=== PATIENT | male | born 1935 | race Caucasian/White ===

== ENCOUNTER → 2017-11-03 | Outpatient (CLI) | payer MEDICARE ==
[~2017-11-03] VITALS: Ht 188 cm; Wt 133.4 kg
[~2017-11-03] MED LIST: ALLO300T2 PO; ASPI-1197 PO; ATOR20TA65 PO; CHOL50004 PO; DIGO250T84 PO; DILT60TA3 PO; EXEN2PEN SQ; FINA5TAB41 PO; LANS30CA55 PO; METF-444 PO; METO-391 PO; NATE120T9 PO; REGADENOSON 0.4 MG/5 ML PF SYG IVP SCH; TAMS0.4C32 PO; TORS10TA18 PO; TRAM200T36 PO; VITAMIN B12 PO; WARF5TAB8 PO
== END | disposition home or self-care (01) ==
LOC: SHCH 07:45
PROVIDERS: ATTEND Internal Medicine Cardiovascular Disease
DX: I25.9 Chronic ischemic heart disease, unspecified (principal); I25.10 Atherosclerotic heart disease of native coronary artery without angina pectoris
CPT/HCPCS: 78452; 93017; 96374; A9500 ×2; J2785

== ENCOUNTER → 2017-11-04 | Outpatient (CLI) | payer MEDICARE ==
[~2017-11-04] MED LIST changes: -REGADENOSON 0.4 MG/5 ML PF SYG IVP SCH
== END | disposition home or self-care (01) ==
LOC: EDUNIT# 08:30 → SHCH 09:04
PROVIDERS: ATTEND Internal Medicine Cardiovascular Disease
DX: I35.0 Nonrheumatic aortic (valve) stenosis (principal); I70.0 Atherosclerosis of aorta
CPT/HCPCS: 93306

== ENCOUNTER 2017-11-11 07:32 | Day surgery (SDC) | payer MEDICARE ==
[2017-11-07 14:03] VITALS: BP 142/71
[2017-11-07 14:20] LABS: BASOPHILS % (AUTO) 0.6 % (0.0-5.0); EOSINOPHILS % (AUTO) 1.4 % (0.0-8.0); HEMATOCRIT 40.8 % (42-54); LYMPHOCYTES % (AUTO) 22.3 % (21.0-51.0); MEAN CORPUSCULAR HEMOGLOBIN 31.6 pg (27.0-33.0); MEAN CORPUSCULAR HGB CONC 33.5 g/dL (32.0-36.0); MEAN CORPUSCULAR VOLUME 94.3 fL (79-99); MONOCYTES % (AUTO) 4.8 % (3.0-13.0); NEUTROPHILS % (AUTO) 70.9 % (40.0-77.0); PLATELET COUNT (AUTO) 152 K/uL (130-400); RED BLOOD CELL COUNT(AUTO) 4.33 MIL/uL (4.50-6.20); RED CELL DISTRIBUTION WIDTH 13.9 % (11.0-15.5); WHITE BLOOD COUNT (AUTO) 8.9 K/uL (4.8-10.8)
[2017-11-07 14:30] LABS: CREATININE 1.2 mg/dL (0.5-1.5); POTASSIUM 4.5 mmol/L (3.5-5.1)
[2017-11-07 14:32] LABS: INR 2.2 (0.85-1.15); PARTIAL THROMBOPLASTIN TIME 34.5 SEC (26.3-35.5); PROTHROMBIN TIME 22.7 SEC (9.6-11.6)
[~2017-11-11] VITALS: Ht 188 cm; Wt 136.1 kg
[2017-11-11] VITALS (10 sets, daily range): BP systolic 103–167; BP diastolic 59–77
[2017-11-11 08:29] LABS: INR 1.13 (0.85-1.15); PROTHROMBIN TIME 11.8 SEC (9.6-11.6)
[2017-11-11] MEDS ORDERED: SODIUM CHLORIDE 0.9% 1000ML 1,000 ML IV ONE (08:30)
[2017-11-11] MEDS ORDERED: LIDOCAINE HCL 1% MDV 50ML VIAL ONE (14:17)
[2017-11-11] MEDS ORDERED: CEFAZOLIN SODIUM 1 GM VIAL ONE ×2 (14:21→15:05)
[2017-11-11] MEDS ORDERED: BUPIVACAINE/PF 0.25% 50ML VIAL IJ ONE (14:22)
[2017-11-11] MEDS ORDERED: MEPERIDINE-PF 25 MG/ML SYG ONE ×2 (14:54→15:12)
[2017-11-11] MEDS ORDERED: MIDAZOLAM HCL 1 MG/ML 2ML VIAL ONE ×2 (14:54→15:12)
[2017-11-11] MEDS ORDERED: THROMBIN-JMI 5000 UNIT/VIAL TP ONE (15:30)
[2017-11-11] MEDS ORDERED: LABETALOL HCL 5 MG/ML 20ML VIAL IV ONE (15:38)
[2017-11-11] MEDS ORDERED: OCTYL 2-CYANOACRYLATE 1 EACH TP ONE (15:40)
[2017-11-11] MEDS ORDERED: ACETAMINOPHEN-CODEINE 300/30MG TAB PO PRN ×2 (16:00)
[2017-11-11] MEDS ORDERED: ACETAMINOPHEN 325 MG TAB PO PRN ×2 (16:00)
[2017-11-17] MEDS ORDERED: SODIUM CHLORIDE 0.9% 1000ML 1,000 ML IV SCH (08:00)
[2017-11-17] MEDS ORDERED: CEFAZOLIN 3GM /D5W 100ML 100 ML IV PRN (08:00)
== END 2017-11-11 19:55 | disposition home or self-care (01) ==
LOC: DAH 07:32
PROVIDERS: ATTEND Internal Medicine Cardiovascular Disease
DX: I48.2 Chronic atrial fibrillation (principal); I25.10 Atherosclerotic heart disease of native coronary artery without angina pectoris; I10 Essential (primary) hypertension; E78.5 Hyperlipidemia, unspecified; K21.9 Gastro-esophageal reflux disease without esophagitis; M19.90 Unspecified osteoarthritis, unspecified site; E66.9 Obesity, unspecified; Z68.38 Body mass index [BMI] 38.0-38.9, adult; Z95.1 Presence of aortocoronary bypass graft; Z79.01 Long term (current) use of anticoagulants; Z79.84 Long term (current) use of oral hypoglycemic drugs; Z79.82 Long term (current) use of aspirin; Z79.899 Other long term (current) drug therapy; Z87.891 Personal history of nicotine dependence; F15.90 Other stimulant use, unspecified, uncomplicated; Z82.49 Family history of ischemic heart disease and other diseases of the circulatory system; Z84.89 Family history of other specified conditions
CPT/HCPCS: 33227; 36415 ×2; 80048; 82948 ×3; 85025; 85610 ×2; 85730; 93005; 99156; 99157 ×2; A4606; C1786; J0690 ×2; J2175 ×2; J2250 ×2; J3490 ×4; J7030; 33228

== ENCOUNTER → 2020-02-01 | Outpatient (CLI) | payer MEDICARE ==
[~2020-02-01] MED LIST changes: +DIGO250T73 PO; -DIGO250T84 PO
== END | disposition home or self-care (01) ==
LOC: RAH 13:07
PROVIDERS: ATTEND Family Medicine
DX: M48.061 Spinal stenosis, lumbar region without neurogenic claudication (principal); R29.898 Other symptoms and signs involving the musculoskeletal system; M25.78 Osteophyte, vertebrae
CPT/HCPCS: 72131

== ENCOUNTER 2020-02-23 05:55 | Day surgery (SDC) | payer MEDICARE ==
[2020-02-22 09:18] VITALS: BP 126/70
[~2020-02-23] VITALS: Ht 188 cm; Wt 123.3 kg
[~2020-02-23 05:55] MED LIST changes: -EXEN2PEN SQ
[2020-02-23 06:14] VITALS: BP 115/62
[2020-02-23] MEDS ORDERED: ISOVUE-M 200 20 ML VIAL IT ONE (06:44)
[2020-02-23] MEDS ORDERED: 0.9%NACL 1000ML 1,000 ML IV ONE (07:04)
== END 2020-02-23 07:40 | disposition home or self-care (01) ==
LOC: DAH 05:55
PROVIDERS: ATTEND Neurological Surgery
DX: M48.061 Spinal stenosis, lumbar region without neurogenic claudication (principal); Z53.8 Procedure and treatment not carried out for other reasons
CPT/HCPCS: 71045; 82948; 93005; A4215; A4221; A4222; A4223; A4663; J7030; Q9966

== ENCOUNTER → 2020-03-01 | Outpatient (CLI) | payer MEDICARE ==
[~2020-03-01] MED LIST changes: +IOHEXOL-350 50ML VIAL IV ONE
== END | disposition home or self-care (01) ==
LOC: RAH 08:08
PROVIDERS: ATTEND Internal Medicine Cardiovascular Disease
DX: I71.4 Abdominal aortic aneurysm, without rupture (principal); I25.10 Atherosclerotic heart disease of native coronary artery without angina pectoris; J98.11 Atelectasis; I70.298 Other atherosclerosis of native arteries of extremities, other extremity; M51.35 Other intervertebral disc degeneration, thoracolumbar region
CPT/HCPCS: 75635; Q9967 ×3

== ENCOUNTER → 2020-03-09 | Outpatient (CLI) | payer MEDICARE ==
[~2020-03-09] MED LIST changes: -IOHEXOL-350 50ML VIAL IV ONE
== END | disposition home or self-care (01) ==
LOC: SHCH 08:32
PROVIDERS: ATTEND Internal Medicine Cardiovascular Disease
DX: I49.5 Sick sinus syndrome (principal)
CPT/HCPCS: 93306; 93356

== ENCOUNTER → 2020-03-14 | Outpatient (CLI) | payer MEDICARE | END | disposition home or self-care (01) | LOC: SHCH 14:19 | PROVIDERS: ATTEND Internal Medicine Cardiovascular Disease | DX: I65.23 Occlusion and stenosis of bilateral carotid arteries (principal); I25.10 Atherosclerotic heart disease of native coronary artery without angina pectoris | CPT/HCPCS: 93880 ==

== ENCOUNTER → 2022-04-12 | Outpatient (CLI) | payer MEDICARE ==
[~2022-04-12] MED LIST changes: +TRAM200T30 PO; -TRAM200T36 PO
[2022-04-12 10:29] LABS: INR 1.21 (0.85-1.15)
[2022-04-12 10:30] LABS: PARTIAL THROMBOPLASTIN TIME 27.6 SEC (26.3-35.5)
[2022-04-12 17:21] LABS: BF EOSINOPHIL 2 %; BF LYMPHOCYTE 52 %; BF MESOTHELIAL 4 %; BF OTHER CELLS 1
[2022-04-12 17:49] LABS: BODY FLUID RBC 716 /cu. mm.; BODY FLUID WBC 1222 /cu. mm.
[2022-04-12 18:01] LABS: APPEARANCE BODY FLUID CLEAR (CLEAR); COLOR,BODY FLUID YELLOW (LT YELLOW); SPECIMENTYPE,BODY FLUID PLEURAL
[2022-04-12 18:02] LABS: TOTAL VOLUME,BODY FLUID 2000 mL
== END | disposition home or self-care (01) ==
LOC: RAH 09:08
PROVIDERS: ATTEND Family Medicine
DX: J90 Pleural effusion, not elsewhere classified (principal); Z79.01 Long term (current) use of anticoagulants
CPT/HCPCS: 32555; 89051; 85610; 85730; 87071; 87205; 36415; 71045; C1729

== ENCOUNTER → 2022-05-08 | Outpatient (CLI) | payer MEDICARE | END | disposition home or self-care (01) | LOC: RAH 12:55 | PROVIDERS: ATTEND Student in an Organized Health Care Education/Training Program | DX: I08.0 Rheumatic disorders of both mitral and aortic valves (principal); R01.1 Cardiac murmur, unspecified | CPT/HCPCS: 93306 ==

== ENCOUNTER → 2022-05-20 | Outpatient (CLI) | payer MEDICARE ==
[~2022-05-20] MED LIST changes: +LIDOCAINE HCL 1% 20 ML VIAL ONE
[2022-05-20 13:57] LABS: CHOLESTEROL < 50 mg/dL (<200); HDL CHOLESTEROL 24 mg/dL (29-71); LDL DIRECT 14 mg/dL (0-99); TRIGLYCERIDES < 15 mg/dL (30-200)
[2022-05-20 14:50] LABS: SPECIMENTYPE,BODY FLUID PLEURAL
[2022-05-20 14:51] LABS: APPEARANCE BODY FLUID CLEAR (CLEAR); COLOR,BODY FLUID YELLOW (LT YELLOW); TOTAL VOLUME,BODY FLUID 2000 mL
[2022-05-20 15:01] LABS: BODY FLUID RBC 222 /cu. mm.; BODY FLUID WBC 790 /cu. mm.
[2022-05-20 16:29] LABS: BF LYMPHOCYTE 7 %; BF MESOTHELIAL 1 %; BF MONOCYTE 2 %; BF OTHER CELLS 11
== END | disposition home or self-care (01) ==
LOC: RAH 09:15
PROVIDERS: ATTEND Family Medicine
DX: J90 Pleural effusion, not elsewhere classified (principal); Z79.899 Other long term (current) drug therapy
CPT/HCPCS: 32555; 71045; 80061; 82945; 82150; 84157; 83615; 89051; 84315; 36415; C1729

== ENCOUNTER → 2022-06-24 | Outpatient (CLI) | payer MEDICARE ==
[~2022-06-24] MED LIST changes: -LIDOCAINE HCL 1% 20 ML VIAL ONE
[2022-06-24 16:41] LABS: ALBUMIN 3.2 g/dL (3.5-5.0); CREATININE 1.3 mg/dL (0.5-1.5); POTASSIUM 3.6 mmol/L (3.5-5.1); TOTAL PROTEIN, SERUM 6.6 g/dL (6.0-8.3)
== END | disposition home or self-care (01) ==
LOC: LAB 13:51
PROVIDERS: ATTEND Student in an Organized Health Care Education/Training Program
DX: I73.9 Peripheral vascular disease, unspecified (principal)
CPT/HCPCS: 36415; 80053

== ENCOUNTER → 2022-07-05 | Outpatient (CLI) | payer MEDICARE ==
[~2022-07-05] MED LIST changes: +IOHEXOL 350 MG/ML 100ML INFUS..BTL IV ONE; +IOHEXOL-350 50ML VIAL IV ONE
[2022-07-05 11:13] LABS: CREATININE 1.5 mg/dL (0.5-1.5)
[2022-07-05 11:26] LABS: INR 1.62 (0.85-1.15); PROTHROMBIN TIME 17.2 SEC (9.6-11.6)
[2022-07-05 11:28] LABS: PARTIAL THROMBOPLASTIN TIME 29.9 SEC (26.3-35.5)
== END | disposition home or self-care (01) ==
LOC: RAH 10:06
PROVIDERS: ATTEND Student in an Organized Health Care Education/Training Program
DX: J90 Pleural effusion, not elsewhere classified (principal); I73.9 Peripheral vascular disease, unspecified; R06.02 Shortness of breath; I71.40 Abdominal aortic aneurysm, without rupture, unspecified; K80.20 Calculus of gallbladder without cholecystitis without obstruction; R16.0 Hepatomegaly, not elsewhere classified; Z79.01 Long term (current) use of anticoagulants
CPT/HCPCS: 32555; 71045; 84520; 82565; 85610; 85730; 36415; 75635; Q9967; C1729

== ENCOUNTER → 2022-07-30 | Outpatient (CLI) | payer MEDICARE ==
[~2022-07-30] MED LIST changes: -IOHEXOL 350 MG/ML 100ML INFUS..BTL IV ONE; -IOHEXOL-350 50ML VIAL IV ONE; +LIDOCAINE HCL 1% 20 ML VIAL ONE
== END | disposition home or self-care (01) ==
LOC: RAH 07:27
PROVIDERS: ATTEND Family Medicine
DX: J90 Pleural effusion, not elsewhere classified (principal); E11.22 Type 2 diabetes mellitus with diabetic chronic kidney disease; I13.0 Hypertensive heart and chronic kidney disease with heart failure and stage 1 through stage 4 chronic kidney disease, or unspecified chronic kidney disease; N18.30 Chronic kidney disease, stage 3 unspecified; I50.32 Chronic diastolic (congestive) heart failure; I25.2 Old myocardial infarction; I87.2 Venous insufficiency (chronic) (peripheral); E66.9 Obesity, unspecified; E03.9 Hypothyroidism, unspecified; E78.5 Hyperlipidemia, unspecified; M10.9 Gout, unspecified; K21.9 Gastro-esophageal reflux disease without esophagitis; I48.20 Chronic atrial fibrillation, unspecified; Z95.5 Presence of coronary angioplasty implant and graft; Z90.89 Acquired absence of other organs; Z98.890 Other specified postprocedural states; Z82.49 Family history of ischemic heart disease and other diseases of the circulatory system; Z80.1 Family history of malignant neoplasm of trachea, bronchus and lung; Z79.82 Long term (current) use of aspirin; Z79.01 Long term (current) use of anticoagulants; Z79.899 Other long term (current) drug therapy; Z68.34 Body mass index [BMI] 34.0-34.9, adult
CPT/HCPCS: 32555; 71045; C1729

== ENCOUNTER → 2022-09-04 | Outpatient (CLI) | payer MEDICARE ==
[~2022-09-04] MED LIST changes: -LIDOCAINE HCL 1% 20 ML VIAL ONE
[2022-09-04 09:12] LABS: INR 2.12 (0.85-1.15); PROTHROMBIN TIME 23.4 SEC (9.6-11.6)
[2022-09-04 14:13] LABS: APPEARANCE BODY FLUID CLEAR (CLEAR); COLOR,BODY FLUID YELLOW (LT YELLOW); SPECIMENTYPE,BODY FLUID PLEURAL; TOTAL VOLUME,BODY FLUID 2000 mL
[2022-09-04 15:23] LABS: BF LYMPHOCYTE 84 %; BF MONOCYTE 3 %
[2022-09-04 15:29] LABS: BODY FLUID RBC 563 /cu. mm.; BODY FLUID WBC 1317 /cu. mm.
== END | disposition home or self-care (01) ==
LOC: RAH 07:52
PROVIDERS: ATTEND Family Medicine
DX: J90 Pleural effusion, not elsewhere classified (principal); Z79.01 Long term (current) use of anticoagulants; Z79.899 Other long term (current) drug therapy
CPT/HCPCS: 32555; 89051; 85610; 85730; 87071; 87205; 36415; 71045; C1729

== ENCOUNTER → 2023-01-27 | Outpatient (CLI) | payer MEDICARE ==
[2023-01-27 10:41] LABS: PARTIAL THROMBOPLASTIN TIME 44.5 SEC (26.3-35.5)
[2023-01-27 10:47] LABS: INR 4.01 (0.85-1.15); PROTHROMBIN TIME 42.5 SEC (9.6-11.6)
== END | disposition home or self-care (01) ==
LOC: RAH 09:11
PROVIDERS: ATTEND Family Medicine
DX: J90 Pleural effusion, not elsewhere classified (principal); Z79.01 Long term (current) use of anticoagulants; Z79.899 Other long term (current) drug therapy
CPT/HCPCS: 32555; 85610; 85730; 36415; 71045; C1729

== ENCOUNTER → 2023-04-30 | Outpatient (CLI) | payer MEDICARE ==
[2023-04-30 09:37] LABS: INR 1.53 (0.85-1.15); PROTHROMBIN TIME 17.3 SEC (9.6-11.6)
[2023-04-30 09:38] LABS: PARTIAL THROMBOPLASTIN TIME 30.7 SEC (26.3-35.5)
[2023-04-30 13:32] LABS: GLUCOSE PLEURAL FLUID 171; PROTEIN PLEURAL FLUID 3.4 mg/dL
[2023-04-30 15:15] LABS: BODY FLUID RBC 1550 /cu. mm.; BODY FLUID WBC 2245 /cu. mm.
[2023-04-30 17:52] LABS: APPEARANCE BODY FLUID SLIGHTLY CLOUDY (CLEAR); COLOR,BODY FLUID YELLOW (LT YELLOW); SPECIMENTYPE,BODY FLUID PLEURAL; TOTAL VOLUME,BODY FLUID 2000 mL
[2023-04-30 19:07] LABS: BF LYMPHOCYTE 85 %; BF MACROPHAGE 4; BF MONOCYTE 3 %; BF OTHER CELLS 4; BF TOTAL CELLS COUNTED 100
== END | disposition home or self-care (01) ==
LOC: RAH 08:46
PROVIDERS: ATTEND Family Medicine
DX: J90 Pleural effusion, not elsewhere classified (principal); J93.9 Pneumothorax, unspecified; E11.22 Type 2 diabetes mellitus with diabetic chronic kidney disease; I13.0 Hypertensive heart and chronic kidney disease with heart failure and stage 1 through stage 4 chronic kidney disease, or unspecified chronic kidney disease; N18.30 Chronic kidney disease, stage 3 unspecified; I50.32 Chronic diastolic (congestive) heart failure; I25.2 Old myocardial infarction; I87.2 Venous insufficiency (chronic) (peripheral); E66.9 Obesity, unspecified; E03.9 Hypothyroidism, unspecified; E78.5 Hyperlipidemia, unspecified; M10.9 Gout, unspecified; K21.9 Gastro-esophageal reflux disease without esophagitis; I48.20 Chronic atrial fibrillation, unspecified; Z95.5 Presence of coronary angioplasty implant and graft; Z90.89 Acquired absence of other organs; Z79.899 Other long term (current) drug therapy; Z82.49 Family history of ischemic heart disease and other diseases of the circulatory system; Z80.1 Family history of malignant neoplasm of trachea, bronchus and lung; Z79.82 Long term (current) use of aspirin; Z68.34 Body mass index [BMI] 34.0-34.9, adult; Z79.01 Long term (current) use of anticoagulants; Z98.890 Other specified postprocedural states
CPT/HCPCS: 32555; 71045 ×2; 82945; 84157; 83986; 83615; 89051; 85610; 85730; 87071; 87205; 36415; 88305; 88112; C1729

== ENCOUNTER → 2023-06-02 | Outpatient (CLI) | payer MEDICARE ==
[2023-06-02 08:44] LABS: INR 1.94 (0.85-1.15); PROTHROMBIN TIME 21.8 SEC (9.6-11.6)
[2023-06-02 08:45] LABS: PARTIAL THROMBOPLASTIN TIME 35.3 SEC (26.3-35.5)
== END | disposition home or self-care (01) ==
LOC: RAH 07:45
PROVIDERS: ATTEND Family Medicine
DX: J90 Pleural effusion, not elsewhere classified (principal); I48.20 Chronic atrial fibrillation, unspecified; E11.22 Type 2 diabetes mellitus with diabetic chronic kidney disease; I13.0 Hypertensive heart and chronic kidney disease with heart failure and stage 1 through stage 4 chronic kidney disease, or unspecified chronic kidney disease; N18.31 Chronic kidney disease, stage 3a; I50.32 Chronic diastolic (congestive) heart failure; K21.9 Gastro-esophageal reflux disease without esophagitis; M10.9 Gout, unspecified; D68.59 Other primary thrombophilia; I25.2 Old myocardial infarction; I87.2 Venous insufficiency (chronic) (peripheral); E66.9 Obesity, unspecified; E03.9 Hypothyroidism, unspecified; E78.5 Hyperlipidemia, unspecified; Z98.890 Other specified postprocedural states; Z90.89 Acquired absence of other organs; Z98.41 Cataract extraction status, right eye; Z98.42 Cataract extraction status, left eye; Z79.899 Other long term (current) drug therapy; Z68.29 Body mass index [BMI] 29.0-29.9, adult; Z79.01 Long term (current) use of anticoagulants
CPT/HCPCS: 32555; 71045; 85610; 85730; 36415; C1729

== ENCOUNTER → 2023-07-04 | Outpatient (CLI) | payer MEDICARE ==
[2023-07-04 09:13] LABS: INR 1.9 (0.85-1.15); PROTHROMBIN TIME 21.4 SEC (9.6-11.6)
[2023-07-04 09:14] LABS: PARTIAL THROMBOPLASTIN TIME 37.8 SEC (26.3-35.5)
== END | disposition home or self-care (01) ==
LOC: RAH 10:00
PROVIDERS: ATTEND Family Medicine
DX: J90 Pleural effusion, not elsewhere classified (principal); J93.9 Pneumothorax, unspecified; J06.9 Acute upper respiratory infection, unspecified; I48.20 Chronic atrial fibrillation, unspecified; E03.9 Hypothyroidism, unspecified; E78.5 Hyperlipidemia, unspecified; M10.9 Gout, unspecified; K21.9 Gastro-esophageal reflux disease without esophagitis; E66.9 Obesity, unspecified; E11.22 Type 2 diabetes mellitus with diabetic chronic kidney disease; I25.2 Old myocardial infarction; I13.0 Hypertensive heart and chronic kidney disease with heart failure and stage 1 through stage 4 chronic kidney disease, or unspecified chronic kidney disease; N18.30 Chronic kidney disease, stage 3 unspecified; I50.32 Chronic diastolic (congestive) heart failure; Z98.41 Cataract extraction status, right eye; Z98.42 Cataract extraction status, left eye; Z98.890 Other specified postprocedural states; Z90.89 Acquired absence of other organs; Z87.891 Personal history of nicotine dependence; Z82.49 Family history of ischemic heart disease and other diseases of the circulatory system; Z68.30 Body mass index [BMI] 30.0-30.9, adult
CPT/HCPCS: 32555; 71045 ×2; 85610; 85730; 36415; C1729

== ENCOUNTER → 2023-07-18 | Outpatient (CLI) | payer MEDICARE | END | disposition home or self-care (01) | LOC: RAH 09:10 | PROVIDERS: ATTEND Family Medicine | DX: J90 Pleural effusion, not elsewhere classified (principal); J93.81 Chronic pneumothorax; I13.0 Hypertensive heart and chronic kidney disease with heart failure and stage 1 through stage 4 chronic kidney disease, or unspecified chronic kidney disease; E11.22 Type 2 diabetes mellitus with diabetic chronic kidney disease; I50.32 Chronic diastolic (congestive) heart failure; N18.30 Chronic kidney disease, stage 3 unspecified; E78.5 Hyperlipidemia, unspecified; E66.9 Obesity, unspecified; M10.9 Gout, unspecified; K21.9 Gastro-esophageal reflux disease without esophagitis; I48.20 Chronic atrial fibrillation, unspecified; E03.9 Hypothyroidism, unspecified; I25.2 Old myocardial infarction; I87.2 Venous insufficiency (chronic) (peripheral); Z79.01 Long term (current) use of anticoagulants; Z99.2 Dependence on renal dialysis; Z98.890 Other specified postprocedural states; Z79.899 Other long term (current) drug therapy; Z98.41 Cataract extraction status, right eye; Z98.42 Cataract extraction status, left eye; Z87.891 Personal history of nicotine dependence; Z68.30 Body mass index [BMI] 30.0-30.9, adult | CPT/HCPCS: 32555; 71045; C1729 ==

== ENCOUNTER → 2023-08-01 | Outpatient (CLI) | payer MEDICARE ==
[2023-08-01 09:01] LABS: INR 1.64 (0.85-1.15); PROTHROMBIN TIME 18.7 SEC (9.6-11.6)
[2023-08-01 09:03] LABS: PARTIAL THROMBOPLASTIN TIME 30.8 SEC (26.3-35.5)
== END ==
LOC: RAH 08:04
PROVIDERS: ATTEND Family Medicine
DX: J90 Pleural effusion, not elsewhere classified (principal); K21.9 Gastro-esophageal reflux disease without esophagitis; E03.9 Hypothyroidism, unspecified; E78.5 Hyperlipidemia, unspecified; I13.0 Hypertensive heart and chronic kidney disease with heart failure and stage 1 through stage 4 chronic kidney disease, or unspecified chronic kidney disease; E11.22 Type 2 diabetes mellitus with diabetic chronic kidney disease; N18.30 Chronic kidney disease, stage 3 unspecified; I50.32 Chronic diastolic (congestive) heart failure; M10.9 Gout, unspecified; E66.9 Obesity, unspecified; Z68.30 Body mass index [BMI] 30.0-30.9, adult; Z98.41 Cataract extraction status, right eye; Z98.42 Cataract extraction status, left eye; Z82.49 Family history of ischemic heart disease and other diseases of the circulatory system; Z87.891 Personal history of nicotine dependence; Z79.82 Long term (current) use of aspirin; Z79.84 Long term (current) use of oral hypoglycemic drugs; Z79.899 Other long term (current) drug therapy; Z95.5 Presence of coronary angioplasty implant and graft; Z95.0 Presence of cardiac pacemaker; Z98.890 Other specified postprocedural states
CPT/HCPCS: 32555; 71045; 85610; 85730; 36415; C1729

== ENCOUNTER → 2023-08-29 | Outpatient (CLI) | payer MEDICARE | END | disposition home or self-care (01) | LOC: CANPRECLI → RAH 07:55 | PROVIDERS: ATTEND Family Medicine | DX: J90 Pleural effusion, not elsewhere classified (principal) | CPT/HCPCS: 32555; 71045; C1729 ==

== ENCOUNTER → 2023-09-26 | Outpatient (CLI) | payer MEDICARE | END | disposition home or self-care (01) | LOC: RAH 08:09 | PROVIDERS: ATTEND Family Medicine | DX: J90 Pleural effusion, not elsewhere classified (principal) | CPT/HCPCS: 32555; 71045; C1729 ==

== ENCOUNTER → 2023-10-10 | Outpatient (CLI) | payer MEDICARE | END | disposition home or self-care (01) | LOC: RAH 07:44 | PROVIDERS: ATTEND Family Medicine | DX: J90 Pleural effusion, not elsewhere classified (principal) | CPT/HCPCS: 32555; 71045; C1729 ==

== ENCOUNTER → 2023-11-07 | Outpatient (CLI) | payer MEDICARE | END | disposition home or self-care (01) | LOC: RAH 07:35 | PROVIDERS: ATTEND Family Medicine | DX: J90 Pleural effusion, not elsewhere classified (principal); I48.91 Unspecified atrial fibrillation; M10.9 Gout, unspecified; I13.0 Hypertensive heart and chronic kidney disease with heart failure and stage 1 through stage 4 chronic kidney disease, or unspecified chronic kidney disease; I50.32 Chronic diastolic (congestive) heart failure; E11.22 Type 2 diabetes mellitus with diabetic chronic kidney disease; N18.31 Chronic kidney disease, stage 3a; E78.5 Hyperlipidemia, unspecified; E66.9 Obesity, unspecified; Z95.0 Presence of cardiac pacemaker; Z95.5 Presence of coronary angioplasty implant and graft; Z98.42 Cataract extraction status, left eye; Z98.41 Cataract extraction status, right eye; Z87.891 Personal history of nicotine dependence; Z80.43 Family history of malignant neoplasm of testis; Z79.01 Long term (current) use of anticoagulants; Z79.899 Other long term (current) drug therapy | CPT/HCPCS: 32555; 71045; C1729 ==

== ENCOUNTER 2023-11-21 14:27 | Emergency (ER) | payer MEDICARE ==
[~2023-11-21] VITALS: Ht 193 cm; Wt 115.2 kg
[2023-11-21 15:42] LABS: BASOPHILS # (AUTO) 0.05 K/uL (0.00-0.20); BASOPHILS % (AUTO) 0.9 % (0.0-5.0); EOSINOPHILS # (AUTO) 0.13 K/uL (0.00-0.70); EOSINOPHILS % (AUTO) 2.4 % (0.0-8.0); HEMATOCRIT 36.4 % (42-54); IMMATURE GRANULOCYTE ABSOLUTE 0.02 K/uL (0-1); LYMPHOCYTES # (AUTO) 1.3 K/uL (1.0-4.8); LYMPHOCYTES % (AUTO) 24.8 % (21.0-51.0); MEAN CORPUSCULAR HEMOGLOBIN 30.6 pg (27.0-33.0); MEAN CORPUSCULAR VOLUME 98.6 fL (79-99); MONOCYTES # (AUTO) 0.3 K/uL (0.1-1.0); MONOCYTES % (AUTO) 6.4 % (3.0-13.0); NEUTROPHILS # (AUTO) 3.5 K/uL (1.8-7.7); NEUTROPHILS % (AUTO) 65.1 % (40.0-77.0); PLATELET COUNT (AUTO) 147 K/uL (130-400); RED BLOOD CELL COUNT(AUTO) 3.69 MIL/uL (4.50-6.20); RED CELL DISTRIBUTION WIDTH 14.2 % (11.0-15.5); WHITE BLOOD COUNT (AUTO) 5.3 K/uL (4.8-10.8)
[2023-11-21 15:53] LABS: CREATININE 1.1 mg/dL (0.5-1.3); POTASSIUM 4.1 mmol/L (3.5-5.1)
[2023-11-21 16:43] VITALS: BP 97/63; PULSE 71; RESP 20; TEMP 98.4; O2SAT 98
== END 2023-11-21 16:43 | disposition home or self-care (01) ==
LOC: EDH 14:27
DX: J93.83 Other pneumothorax (principal); R60.0 Localized edema; I48.91 Unspecified atrial fibrillation; E11.9 Type 2 diabetes mellitus without complications; I11.0 Hypertensive heart disease with heart failure; I50.9 Heart failure, unspecified; J90 Pleural effusion, not elsewhere classified; Z79.82 Long term (current) use of aspirin; Z79.899 Other long term (current) drug therapy; Z79.01 Long term (current) use of anticoagulants; Z95.1 Presence of aortocoronary bypass graft; Z95.810 Presence of automatic (implantable) cardiac defibrillator
CPT/HCPCS: 71045 ×2; 99285; 80048; 85025; 36415; 32555; C1729

== ENCOUNTER → 2023-11-21 | Outpatient (CLI) | payer MEDICARE | END | disposition home or self-care (01) | LOC: RAH 07:39 | PROVIDERS: ATTEND Family Medicine | DX: J90 Pleural effusion, not elsewhere classified (principal); Z79.01 Long term (current) use of anticoagulants; Z79.899 Other long term (current) drug therapy | CPT/HCPCS: 32555; 71045; C1729 ==

== ENCOUNTER → 2023-11-28 | Outpatient (CLI) | payer MEDICARE ==
[2023-11-28 08:59] LABS: INR 1.98 (0.85-1.15); PROTHROMBIN TIME 20.3 SEC (9.6-11.6)
[2023-11-28 09:00] LABS: PARTIAL THROMBOPLASTIN TIME 33.1 SEC (26.3-35.5)
== END | disposition home or self-care (01) ==
LOC: RAH 08:14
PROVIDERS: ATTEND Family Medicine
DX: J90 Pleural effusion, not elsewhere classified (principal); Z79.01 Long term (current) use of anticoagulants; J98.11 Atelectasis
CPT/HCPCS: 32555; 71045; 85610; 85730; 36415; C1729; 32557

== ENCOUNTER → 2023-12-12 | Outpatient (CLI) | payer MEDICARE | END | disposition home or self-care (01) | LOC: RAH 08:03 | PROVIDERS: ATTEND Family Medicine | DX: J90 Pleural effusion, not elsewhere classified (principal); I13.0 Hypertensive heart and chronic kidney disease with heart failure and stage 1 through stage 4 chronic kidney disease, or unspecified chronic kidney disease; E11.22 Type 2 diabetes mellitus with diabetic chronic kidney disease; I50.32 Chronic diastolic (congestive) heart failure; N18.31 Chronic kidney disease, stage 3a; M10.9 Gout, unspecified; J93.9 Pneumothorax, unspecified; I25.2 Old myocardial infarction; I48.91 Unspecified atrial fibrillation; E66.9 Obesity, unspecified; E05.90 Thyrotoxicosis, unspecified without thyrotoxic crisis or storm; D68.59 Other primary thrombophilia; Z98.42 Cataract extraction status, left eye; Z98.41 Cataract extraction status, right eye; Z95.0 Presence of cardiac pacemaker; Z90.89 Acquired absence of other organs; Z79.4 Long term (current) use of insulin; Z79.899 Other long term (current) drug therapy | CPT/HCPCS: 32555; 71045; C1729 ==

== ENCOUNTER → 2024-01-02 | Outpatient (CLI) | payer MEDICARE ==
--- NOTE | 2024-01-02 09:15 | NUR ---
U/S GUIDED RIGHT THORACENTESIS PROCEDURE PERFORMED BY DR. Naty RENO. PUNCTURE SITE RIGHT POSTERIOR BACK AND PATIENT TOLERATED PROCEDURE WELL. TOTAL REMOVED 850 MILLILITERS OF BLOOD-TINGED FLUID. END OF PROCEDURE AT 0900. CATHETER REMOVED AND PETROLEUM GAUZE DRESSING APPLIED- NO BLEEDING NOTED. POST CHEST X-RAY TAKEN AND READ BY DR. Naty RENO. SMALL CHRONIC PNEUMOTHORAX SEEN. PATIENT AWARE OF RECURRENT PNEUMOTHORAX POST PROCEDURE. PATIENT INSTRUCTED TO GO TO THE ED IF SYMPTOMS OF SHORTNESS OF BREATH, CHEST PAIN, OR BLEEDING OCCUR. PATIENT VERBALIZED UNDERSTANDING. PATIENT DISCHARGED VIA ELECTRIC WHEELCHAIR IN STABLE CONDITION.
--- NOTE | 2024-01-02 09:28 | HMCIMG ---
CHEST 1VW HISTORY: Post right thoracentesis COMPARISON: 12/19/2023 FINDINGS: A frontal projection of the chest was obtained. There are bilateral pulmonary infiltrates suggestive of pulmonary vascular congestion with possible superimposed pneumonitis. Right lower lung subsegmental atelectasis changes are seen. There is tiny loculated right pneumothorax smaller in size from previous study. Patient is status post right thoracentesis. The heart is borderline enlarged. All the lines and tubes are again seen in place. No evidence of aortic calcification is seen. IMPRESSION: 1. Mild bilateral pulmonary infiltrates are seen may be related to mild pulmonary vascular congestion with possible superimposed pneumonitis. Right lower lung subsegmental atelectasis. Tiny loculated right pneumothorax smaller in size when compared previous study.
--- NOTE | 2024-01-02 09:34 | HMCIMG ---
US THORACENTISIS/ASP W IMG IR HISTORY: Right pleural effusion COMPARISON: None TECHNIQUE: Informed consent was obtained. Risks and benefits were explained to the patient. A timeout was performed. Patient was prepped and draped in a sterile fashion. Local anesthetics was given as required. Under ultrasound guidance, right pleural effusion was localized. Right thoracentesis was performed. FINDINGS: 850 cc of reddish fluid was aspirated. Patient tolerated procedure without complication. Patient left the department in good condition. IMPRESSION: 1. Uncomplicated ultrasound guidance right thoracentesis. There remains small right basilar loculated pneumothorax which has decreased in size from previous study.
[2024-01-02 09:45] LABS: INR 2.32 (0.85-1.15); PROTHROMBIN TIME 23.5 SEC (9.6-11.6)
[2024-01-02 09:46] LABS: PARTIAL THROMBOPLASTIN TIME 34.7 SEC (26.3-35.5)
== END | disposition home or self-care (01) ==
LOC: RAH 08:07
PROVIDERS: ATTEND Family Medicine
DX: J90 Pleural effusion, not elsewhere classified (principal); Z79.01 Long term (current) use of anticoagulants
CPT/HCPCS: 32555; 71045; 85610; 85730; 36415; C1729

== ENCOUNTER → 2024-01-16 | Outpatient (CLI) | payer MEDICARE ==
--- NOTE | 2024-01-16 09:15 | NUR ---
U/S GD RT THORACENTESIS PROCEDURE PERFORMED BY DR Laura RENO. PUNCTURE SITE RT POSTERIOR BACK AND PATIENT TOLERATED PROCEDURE WELL. TOTAL REMOVED 200ML OF BLOOD TINGED FLUID. END OF PROCEDURE AT 0845. CATHETER REMOVED AND DRESSING APPLIED. NO BLEEDING NOTED. POST CHEST X-RAY TAKEN AND READ BY DR Laura RENO. RT PNEUMOTHORAX SEEN ON PREVIOUS CHEST X-RAYS POST RT THORACENTESIS. DISCHARGE INSTRUCTIONS GIVEN TO PATIENT AND VERBALIZED UNDERSTANDING. DISCHARGED VIA W/C AT 0915. AAO X3 WITH NO C/O PAIN.
--- NOTE | 2024-01-16 09:18 | HMCIMG ---
CHEST 1VW HISTORY: Post right thoracentesis COMPARISON: January 09, 2024 FINDINGS: A frontal projection of the chest was obtained. There are bilateral pulmonary infiltrates suggestive of pulmonary vascular congestion with possible superimposed pneumonitis. Note is again made of right apical pneumothorax also seen on previous study. The heart is borderline enlarged. Pacemaker is seen entering from the left. No evidence of aortic calcification is seen. IMPRESSION: 1. Mild bilateral pulmonary infiltrates are seen may be related to mild pulmonary vascular congestion with possible superimposed pneumonitis. Loculated right apical pneumothorax again seen unchanged.
--- NOTE | 2024-01-16 11:23 | HMCIMG ---
US THORACENTISIS/ASP W IMG IR HISTORY: Pleural effusion COMPARISON: None TECHNIQUE: Informed consent was obtained. Risks and benefits were explained to the patient. A timeout was performed. Patient was prepped and draped in a sterile fashion. Local anesthetics was given as required. Under ultrasound guidance, complex right pleural effusion was localized. Ultrasound guidance right thoracentesis was performed. FINDINGS: 200 cc of yellowish fluid was aspirated. Patient tolerated procedure without complication. Patient left the department in good condition. IMPRESSION: 1. Note is again made of right apical pneumothorax also seen on previous study of January 09, 2024.
== END | disposition home or self-care (01) ==
LOC: RAH 07:34
PROVIDERS: ATTEND Family Medicine
DX: J90 Pleural effusion, not elsewhere classified (principal); K21.9 Gastro-esophageal reflux disease without esophagitis; M10.9 Gout, unspecified; I48.20 Chronic atrial fibrillation, unspecified; I13.0 Hypertensive heart and chronic kidney disease with heart failure and stage 1 through stage 4 chronic kidney disease, or unspecified chronic kidney disease; E11.22 Type 2 diabetes mellitus with diabetic chronic kidney disease; E03.9 Hypothyroidism, unspecified; I50.32 Chronic diastolic (congestive) heart failure; N18.31 Chronic kidney disease, stage 3a; E78.5 Hyperlipidemia, unspecified; D68.59 Other primary thrombophilia; Z98.42 Cataract extraction status, left eye; Z98.41 Cataract extraction status, right eye; Z95.5 Presence of coronary angioplasty implant and graft; Z95.0 Presence of cardiac pacemaker; Z79.899 Other long term (current) drug therapy
CPT/HCPCS: 32555; 71045; C1729

== ENCOUNTER → 2024-01-21 | Outpatient (CLI) | payer MEDICARE ==
--- NOTE | 2024-01-21 10:09 | HMCIMG ---
CHEST 1VW REASON: POST RT THORACENTESIS COMPARISON: 01/16/2024 FINDINGS: Expiratory view shows a small pneumothorax over the right lung apex. There is decreased pleural fluid, there is some persistent atelectasis in the right lower lobe. Left lung is clear. Pacemaker and previous median sternotomy are again noted. IMPRESSION: 1. Small pneumothorax following right-sided thoracentesis. 2. Persistent atelectasis in the right lung base.
--- NOTE | 2024-01-21 10:30 | NUR ---
U/S GD RT THORACENTESIS PROCEDURE PERFORMED BY DR Connie PATEL. PUNCTURE SITE RT POSTERIOR BACK AND PATIENT TOLERATED PROCEDURE WELL. TOTAL REMOVED 800ML OF BLOOD TINGED FLUID. END OF PROCEDURE AT 1040. CATHETER REMOVED AND DRESSING APPLIED. NO BLEEDING NOTED. POST CHEST X-RAY TAKEN AND READ BY DR Connie PATEL. CHRONIC RT PNEUMOTHORAX SEEN. DISCHARGE INSTRUCTIONS GIVEN TO PATIENT AND VERBALIZED UNDERSTANDING. DISCHARGED VIA W/C AT [facility]. AAO X3 WITH NO C/O PAIN.
--- NOTE | 2024-01-21 12:50 | HMCIMG ---
US THORACENTISIS/ASP W IMG IR REASON: PLEURAL EFFUSION COMPARISON: None TECHNIQUE: Paracentesis procedure was discussed with the patient. Right pleural effusion was identified with ultrasound with patient in the seated upright position. Puncture site in the mid back was identified and marked, consistent request of fashion and anesthetized focus of the common duct dilatation. The fluid appears moderately loculated on the ultrasound 5 [place] catheter was placed in the fluid using trocar technique. Blood-tinged fluid was obtained, 0.8 L. Postprocedure chest x-ray showed a small pneumothorax over the apex. Patient appears stable. Blood loss was less than 5 cc. IMPRESSION: 1. Right-sided thoracentesis yielding 800 cc blood-tinged fluid.
== END | disposition home or self-care (01) ==
LOC: RAH 08:23
PROVIDERS: ATTEND Family Medicine
DX: J90 Pleural effusion, not elsewhere classified (principal); J98.11 Atelectasis
CPT/HCPCS: 32555; 71045; C1729

== ENCOUNTER → 2024-01-30 | Outpatient (CLI) | payer MEDICARE ==
--- NOTE | 2024-01-30 09:00 | NUR ---
U/S GD RT THORACENTESIS PROCEDURE PERFORMED BY DR Laura RENO. PUNCTURE SITE RT POSTERIOR BACK AND PATIENT TOLERATED PROCEDURE WELL. TOTAL REMOVED 600ML OF BLOOD TINGED FLUID. END OF PROCEDURE AT 0930. CATHETER REMOVED AND DRESSING APPLIED. NO BLEEDING NOTED. POST CHEST X-RAY TAKEN AND READ BY DR Laura RENO. NO PNEUMOTHORAX SEEN. DISCHARGE INSTRUCTIONS GIVEN TO PATIENT AND VERBALIZED UNDERSTANDING. DISCHARGED VIA W/C AT 0900. AAO X3 WITH NO C/O PAIN.
--- NOTE | 2024-01-30 09:26 | HMCIMG ---
CHEST 1VW HISTORY: Post right thoracentesis COMPARISON: 01/21/2024 FINDINGS: A frontal projection of the chest was obtained. Bilateral pulmonary infiltrates are seen with right more than left. There is stable right pneumothorax. Patient is status post right thoracentesis The heart is borderline enlarged. Pacemaker is seen entering from the left. No evidence of aortic calcification is seen. IMPRESSION: 1. Bilateral pulmonary infiltrates are seen with right more than left. Stable right apical thorax.
--- NOTE | 2024-01-30 09:46 | HMCIMG ---
US THORACENTISIS/ASP W IMG IR HISTORY: Right pleural effusion COMPARISON: None TECHNIQUE: Informed consent was obtained. Risks and benefits were explained to the patient. A timeout was performed. Patient was prepped and draped in a sterile fashion. Local anesthetics was given as required. Under ultrasound guidance, right pleural effusion was localized. Ultrasound guidance right thoracentesis was performed. FINDINGS: 600 cc of pinkish fluid was aspirated. Patient tolerated procedure without complication. Patient left the department in good condition. IMPRESSION: 1. Uncomplicated ultrasound guidance right thoracentesis.
== END | disposition home or self-care (01) ==
LOC: RAH 07:34
PROVIDERS: ATTEND Family Medicine
DX: J90 Pleural effusion, not elsewhere classified (principal)
CPT/HCPCS: 32555; 71045; C1729